=== PATIENT | female | born 2000 ===

== ENCOUNTER 2023-12-26 23:44 | Emergency (ER) | payer OTHER, SELFPAY ==
[2023-12-27] VITALS: BP 119/83; PULSE 87; RESP 17; TEMP 36.7; O2SAT 97; BMI 39.1
--- NOTE | 2023-12-27 01:15 | ED.GENADULT ---
HPI - General Adult General Chief complaint: Extremity Injury, Lower Stated complaint: R Leg pain X 1 month Time Seen by Provider: 12/27/23 00:56 Source: patient, RN notes reviewed and old records reviewed Mode of arrival: ambulatory Limitations: no limitations History of Present Illness HPI narrative: 23-year-old female presents for evaluation of right buttocks and leg pain. She reports her symptoms started about 1 month ago. Her symptoms started while she was at the gym for the 1st time ever trying to do squats with heavy weights She did not fall or drop anything on herself. Her pain has been worse with walking She reports that she tried to stretch 1 time afterwards but stopped due to the pain She has not been back to the gym since the injury Related Data Allergies Allergy/AdvReac Type Severity Reaction Status Date / Time ondansetron [From Zofran] Allergy Rash Verified 12/27/23 00:04 Review of Systems Constitutional: Constitutional: Denies body ache(s), Denies chills and Denies fever(s) ENT: Denies sore throat Cardiovascular: Cardiovascular: Denies chest pain Gastrointestinal: Gastrointestinal: Denies abdominal pain Musculoskeletal: Musculoskeletal: Denies back pain and Reports radiating pain into limb Integumentary/Breasts: Skin/Breast: Denies rash PMFSH Social History Social History Advance Directives: No Advance Directives Information Provided: Yes Physical Exam ED Vital Signs: Vital Signs - 24 hr 12/27/23 00:00 Temperature 98.0 F Pulse Rate 87 Respiratory Rate 17 Blood Pressure 119/83 Pulse Oximetry 97 Oxygen Delivery Method Room Air BMI result Body Mass Index 39.1 Const General: healthy appearing, comfortable, no acute distress, alert and awake Nutritional Appearance: well nourished Orientation/consciousness: patient oriented x3 HENMT Head: Yes normocephalic and Yes atraumatic Eyes Eyelids: Yes eyelids normal Conjunctivae: conjunctivae normal Sclerae: sclerae normal Corneas: corneas normal Pupils: Equal, round and reactive pupils present EOM: EOMs intact bilaterally Neck Neck: Yes full ROM Resp Effort & Inspection: normal respiratory effort, able to speak in complete sentences and not labored GI Inspection: No distended Palpation (GI): Soft to palpation, not firm, nontender, no guarding and not rigid Skin General skin exam: elasticity normal Neuro General: patient oriented x3 Cranial nerves: Yes Equal, round and reactive pupils present and Yes Bilaterally intact EOM present Cognition (Neuro): normal cognition Extrem Other: Patient has some tenderness to the right buttocks on the gluteus and right hamstring region. No visual or palpable deformity. Patient has full range of motion with flexion-extension at the hip and the knee. No calf tenderness or palpable cords. No right lower extremity edema, no overlying skin changes Medical Decision Making Medical Decision Making MDM Narrative: 23-year-old female presents for evaluation of right leg pain. Her exam is consistent with a muscle strain. I have low suspicion for osseous injury as there was no significant trauma. The patient has no risk factors or clinical findings to suggest DVT. We will treat conservatively. She has no lumbar tenderness or straight leg raise to suggest sciatica as the cause of her pain Differential Diagnosis Differential Diagnoses: The differential diagnosis associated with the presentation includes Muscle strain Torn muscle Arthritis Sciatica Discharge Plan Discharge Clinical Impression: Muscle strain of right lower extremity Patient Disposition: Home, Self-Care Instructions: Muscle Strain (ED) Additional Instructions: Use ibuprofen or Tylenol as needed for pain. You may also use warm compresses Your symptoms are most likely related to a muscle strain I recommend that you stretch for 5 minutes once per day Follow-up your primary doctor Stand Alone Forms: Work/School Release Discharge Date/Time: 12/27/23 01:31 Print Language: [place]al[place]
== END 2023-12-27 01:31 | disposition home or self-care (01) ==
PROVIDERS: Emergency Provider Emergency Medicine
DX: S86.911A Strain of unspecified muscle(s) and tendon(s) at lower leg level, right leg, initial encounter (principal); X58.XXXA Exposure to other specified factors, initial encounter; Y93.9 Activity, unspecified; Y92.9 Unspecified place or not applicable; Y99.8 Other external cause status
CPT/HCPCS: 99281